=== PATIENT | female | born 1980 | race Caucasian/White ===

== ENCOUNTER 2025-02-03 12:31 | Emergency (ER) | payer OTHER, SELFPAY ==
--- OUTSIDE RECORDS SUMMARY | 2006-10-30 04:41 | XMS_ITS | Continuity of Care Document ---
Author Organization [facility] Address [address] [place] [address] Phone Care Team Providers Care Real Estate Sales Manager Name Role Phone Gilma Sanchez MD Unavailable Unavailable Medications Medication Instructions Dosage Effective Dates (start - stop) Status Comments Depo-Provera 150 mg/mL IM Susp - Active Depo-Provera 150 mg/mL IM Susp - No Longer Active Procedures Procedure Date Medroxypro Klqwvaw-punfno-889 7 Medroxypro Fdpnggc-riuneu-213 7 Injection Medroxypro Kaxdhuu-cakzvi-505 7 Medroxypro Gglhsdf-cdyiwx-117 7 Injection Medroxypro Acetate-contra Medroxypro Acetate-contra Rho D Ig Human 1 Dose Pkg Preven Med Counsl (sep Pr Advance Directives Directive Yes / No Effective Date File Name Resuscitation Not Answered N/A N/A Life Support Not Answered N/A N/A Intubation Not Answered N/A N/A Antibiotics Not Answered N/A N/A IV Fluid Support Not Answered N/A N/A Tube Feed Not Answered N/A N/A Other Directive N/A N/A WARNING:The information contained in this section is historical and is provided for information only and does not constitute a legal document or any assurance that the information is still accurate. Please verify the information with the altman of the legal document before using it for clinical purposes. Encounters Encounter Description Practice Location Reason(s) For Visit Diagnoses Date Provider Providers Copied on Encounter [facility], [address], [place], [place], [address] [place] [address], tel:[phone] [facility] No Information Laura iVctor [address] [place] [address], [address] [place] [address] , . [phone] [facility], [id number] [place] [address], [address] [place] [address], tel:[phone] [facility] No Information Laura Victor [address] [place] [address], [address] [place] [address] , . [phone] [facility], [address], [address] [place] [address], tel:[phone] [facility] No Information Laura Victor [address] [place] [address], [address] [place] [address] , . [phone] [facility], [address], [address] [place] [address], tel:[phone] [facility] No Information Laura Victor [address] [place] [address], [address] [place] [address] , . [phone] [facility], [address] [place] [address], [address] [place] [address], tel:[phone] [facility] No Information Laura Victor [address] [place] [address], [address] [place] [address] , . tel:[phone] Preven Med [facility]sl (sep Pr [facility], [address] [place] [address], [address] [place] [address], tel:[phone] [facility] No Information Laura Dillard. [facility] [place], [place], [id number] , [place]. tel:[phone] Referring Provider: Gilma Braga, [address] [place] [address], [address] . tel:[phone] Family History Family Member Type Diagnosis Age At Onset Mother Problem (finding) Alive and well Father Problem (finding) Alive and well Payers Payer name Insurance type Covered alliance party ID Authoriza tion(s) No Information Social History Type Description Quantity Date Captured Comments Alcohol Use Details Unknown Caffeine Use Details Unknown Tobacco Use Status Smoking Status No Information Sex Female Vital Signs Date / Time: Height Weight BMI Pulse Rate Blood Pressure Temperature Respiratory Rate Body Surface Area Head Circumference Head Circ. Percentile Wt./Zack. Percentile BMI percentile Pulse Ox Inhaled Ox 9:55 AM 120/80 mm[Hg] Chief Complaint And Reason For Visit No Information Reason For Referral Reason For Referral No Information Plan Of Treatment Date Type Action Status Goal TD Vaccine. Due on 07 due History Of Present Illness Encounter Date Complaint History Of Prese nt Illness No Information Functional Status Date Functional Assessmen t No Information Instructions Date Instruction Additional Infor mation No Information Assessments Type Assessment Date No Information Patient Care Teams Name Effective Dates (start - stop) Status Members No Information
--- OUTSIDE RECORDS SUMMARY | 2006-10-30 04:41 | XMS_ITS | Continuity of Care Document ---
Author Organization [facility] Address [address] [place] [address] Phone Care Team Providers Care Carpet Binder Name Role Phone Gilma Sanchez MD Unavailable Unavailable Medications Medication Instructions Dosage Effective Dates (start - stop) Status Comments Depo-Provera 150 mg/mL IM Susp - Active Depo-Provera 150 mg/mL IM Susp - No Longer Active Procedures Procedure Date Medroxypro Dmlcckh-wsisss-371 7 Medroxypro Ivewyqj-pwwznv-060 7 Injection Medroxypro Vefjlsl-xxyphy-175 7 Medroxypro Xnzaugc-acmssv-944 7 Injection Medroxypro Acetate-contra Medroxypro Acetate-contra Rho [...] Diagnoses Date Provider Providers Copied on Encounter [facility], [address], [place], [place], [address] [place] [address], tel:[phone] [facility] No Information Laura Victor [address] [place] [address], [address] [place] [address] , . [phone] [facility], [address] [place] [address], [address] [place] [address], tel:[phone] [facility] No Information Laura Victor [address] [place] [address], [address] [place] [address] , . [phone] [facility], [address], [address] [place] [address], tel:[phone] [facility] No Information Laura Victor [address] [place] [address], [address] [place] [address] , . [phone] [facility], [address], [address] [place] [address], tel:[phone] [facility] No Information Laura Victor [address] [place] [address], [address] [place] [address] , . [phone] [facility], [id number] [place] [address], [address] [place] [address], tel:[phone] [facility] No Information Laura Victor [address] [place] [address], [address] [place] [address] , . tel:[phone] Preven Med Counsl (sep Pr [facility], [address] [place] [address], [address] [place] [address], tel:[phone] [facility] No Information Laura Dillard. [facility] [place], [place], [id number] , [place]. tel:[phone] Referring Provider: Gilma Braga, [address] [place] [address], [address] . tel:[phone] Family History Family Member Type Diagnosis Age At Onset Mother Problem (finding) Alive and well Father Problem (finding) Alive and well Payers Payer name Insurance type Covered constitution party ID Authoriza tion(s) No Information Social [...]
[2025-02-03 12:36] VITALS: BP 145/96; PULSE 105; TEMP 37; O2SAT 97; BMI 23.0
--- OUTSIDE RECORDS SUMMARY | 2025-02-03 12:45 | XMS_ITS | Clinical Summary ---
Author Organization [facility] Address [address] [place] [address] Care Team Providers Care Job Developer Name Role Phone Rabia Sams MD, IBCLC Primary Care Provid er Allergies No known active allergies Medications MedicationSigDispense QuantityRefillsLast FilledStart DateEnd DateStatus Levonorgestrel (Liletta, 52 MG,) 20.1 MCG/DAY intrauterine device Aglmzxc1905/20/2018Active Family History Medical HistoryRelationNameCommentsNo Known ProblemsDaughterDiabetesMaternal GrandfatherNo Known ProblemsSonRelationNameStatusCommentsBrother1 brother Daughter3 daughtersFatherAliveMaternal GrandfatherMotherAliveSon2 sons Social History Tobacco UseTypesPacks/DayYears UsedDateSmoking Tobacco: Every DayCigarettes Smokeless Tobacco: Never Tobacco Cessation:Ready to Q uit: Not Asked; Counseling Given: Not Answered Alcohol UseStandard Drinks/WeekCommentsYes0 (1 standard drink = 0.6 oz pure alcohol)caffeine intake : coffee 1 qdCommentsNoSex and Gender InformationValueDate RecordedSex Assigned at BirthNot on fileLegal SexFemale 05/30/2022 7:38 PM EDTGender KgjwqdtwEhxxov95/15/2023 7:38 PM EDTSexual OrientationNot on file Last Filed Vital Signs Vital SignReadingTime TakenCommentsBlood Mjhqlmhd866/7211/ 10:35 AM EST Pulse--Temperature--Respiratory Rate--Oxygen Saturation--Inhaled Oxygen Concentration--Ckpspt74 kg (141 lb)02/12/2023 10:35 AM ECTNvgmug808 cm (5' 3 ) 05/20/2018 12:00 PM ESTBody Mass Index24.98005/20/2018 12:00 PM EST Plan of Treatment Health MaintenanceDue DateLast DoneCommentsCT Lslyoqmoeckl53/15/1980Colonoscopy 1979Colorectal Cancer Dtiepgnzz03/15/1980FIT-DNA1979FIT1979 FOBT1979 9030Xtfxbbyvhrrgf66/15/1980Pneumococcal Vaccine: Pediatrics (0 to 5 Years) and At-Risk Patients (6 to 64 Years) (1 of 2 - PCV)09/29/1998Mammogram OVID-19 Vaccine ( - 2023- season)2024Influenza Vaccine (#1)2024Pap Smear02/12/ervical Cancer Screening 02/13/2028HPV/Ujmfua94 Procedures Procedure NamePriorityDate/TimeAssociated DiagnosisCommentsBI MAMMOGRAM SCREENING TOMOSYNTHESIS PYUJEBGPLQqffukf15/14/2023 11:36 AM EST Encounter for screening mammogram for malignant neoplasm of breast THINPREP TIS PAP AND HPV MRNA E6/I5Jwtydsx22/28/2023 11:06 AM EST Screening for malignant neoplasm of cervix Encounter for screening for human papillomavirus (HPV) from Last 3 Months or Most Recently Relevant to Health Maintenance Results * Bilateral screening mammogram with tomosynthesis (02/28/2023 11:36 AM EST) Anatomical RegionLateralityModalityBreastBilateralMammographySpecimen (Source) Anatomical Location / LateralityCollection Method / VolumeCollection Time Received Time02/28/2023 5:15 PM EST Impressions 03/01/2023 8:21 AM EST BIRADS 2 - Benign. Follow-up: ?? Routine Screening Mamm ??. Board Certified Radiologists. ??Accredited by the ACR and FDA. MAMMOGRAPHY IS VERY IMPORTANT TO YOUR HEALTH. ??THE [place] [employer] GUIDELINES RECOMMEND THAT WOMEN 40 YEARS OF AGE AND OLDER SHOULD HAVE A MAMMOGRAM EVERY YEAR. A REMINDER LETTER WILL BE SENT AT THE APPROPRIATE TIME. ??THIS FACILITY UTILIZES A REMINDER SYSTEM TO ENSURE ALL PATIENTS RECEIVE REMINDER NOTIFICATIONS AT THE APPROPRIATE TIME BASED ON THE RECOMMENDATIONS OF THIS EXAM. THIS INCLUDES REMINDERS FOR ROUTINE SCREENING MAMMOGRAMS, DIAGNOSTIC MAMMOGRAMSIN WHICH THE PATIENT IS ASKED TO RETURN FOR ADDITIONAL VIEWS, OR OTHER BREAST IMAGING INTERVENTIONSWHEN APPROPRIATE. THE PATIENT WILL BE PLACED IN THE APPROPRIATE REMINDER SYSTEM INCLUDING A REMINDER AT THE APPROPRIATE TIME FOR ANY PENDING ADDITIONAL VIEWS. TRANSCRIBED BY: ? ELECTRONICALLY SIGNED BY: Francisco Bryan MD Narrative 03/01/2023 8:21 AM EST EXAMINATION: BI MAMMOGRAM SCREENING TOMOSYNTHESIS BILATERAL CLINICAL HISTORY: screening COMPARISON: There are no previous mammograms available for comparison. RESULT: Digital mammography and 3D tomosynthesis of bilateral breasts was performed with routine and pinchback views. There are scattered areas of fibroglandular density. There is no suspicious mass, asymmetry, architectural distortion, or calcification. ??Well circumscribed, fairly well expanded subpectoralis breast implants. ?No significant axillary lymphadenopathy. ?? Procedure Note Francisco Bryan MD - 03/01/2023 EXAMINATION: BI MAMMOGRAM SCREENING TOMOSYNTHESIS BILATERAL CLINICAL HISTORY: screening COMPARISON: There are no previous mammograms available for comparison. RESULT: Digital mammography and 3D tomosynthesis of bilateral breasts wasperformed with routine and pinchback views. There are scattered areas of fibroglandular density. There is no suspicious mass, asymmetry, architectural distortion, or calcification. Well circumscribed, fairly well expanded subpectoralis breast implants. No significant axillary lymphadenopathy. IMPRESSION: BIRADS 2 - Benign. Follow-up: Routine Screening Mamm . Board Certified Radiologists. Accredited by the ACR and FDA. MAMMOGRAPHY IS VERY IMPORTANT TO YOUR HEALTH. THE [place] GUIDELINES RECOMMEND THAT WOMEN 40 YEARS OF AGE AND OLDER SHOULD HAVE AMAMMOGRAM EVERY YEAR. A REMINDER LETTER WILL BE SENT AT THE APPROPRIATE TIME. THIS FACILITYUTILIZES A REMINDER SYSTEM TO ENSURE ALL PATIENTS RECEIVE REMINDERNOTIFICATIONS AT THE APPROPRIATE TIME BASED ON THE RECOMMENDATIONS OF THISEXAM. THIS INCLUDES REMINDERS FOR ROUTINE SCREENING MAMMOGRAMS, DIAGNOSTICMAMMOGRAMS IN WHICH THE PATIENT IS ASKED TO RETURN FOR ADDITIONAL VIEWS,OR OTHER BREAST IMAGING INTERVENTIONS WHEN APPROPRIATE. THE PATIENT WILLBE PLACED IN THE APPROPRIATE REMINDER SYSTEM INCLUDING A REMINDER AT THEAPPROPRIATE TIME FOR ANY PENDING ADDITIONAL VIEWS. TRANSCRIBED BY: ELECTRONICALLY SIGNED BY: Francisco Bryan MD Authorizing ProviderResult TypeResult StatusEvibobo Alarconjesseniafortino [facility] BI PROCEDURESFinal Result * THINPREP TIS PAP AND HPV MRNA E6/E7 (02/12/2023 11:06 AM EST)ComponentValueRef RangeTest MethodAnalysis TimePerformed AtPathologist SignatureCLINICAL INFORMATIONQUESTComment:None givenLMPQUESTComment:NONE GIVENPREV. PAPQUEST Comment:NONE GIVENPREV. BXQUESTComment:NONE GIVENSOURCEQUESTComment:Cervix STATEMENT OF ADEQUACYQUESTComment: Satisfactory for evaluation. Endocervical/transformation zone component absent. Partially obscuring inflammation INTERPRETATION/RESULTQUESTComment: Cytology Results: Negative for intraepithelial lesion or malignancy. COMMENTQUESTComment: This Pap test has been evaluated with computer assisted technology. CYTOTECHNOLOGISTQUESTComment: MRS, CT(ASCP) CT screening location: [place] [address]. (ALWAYS MESSAGE)QUESTComment: EXPLANATORY NOTE: The Pap is a screening test for cervical cancer. It is not a diagnostic test and is subject to false negative and false positive results. It is most reliable when a satisfactory sample, regularly obtained, is submitted with relevant clinical findings and history, and when the Pap result is evaluated along with historic and current clinical information. HPV MRNA E6/E7Not DetectedNot DetectedQUESTComment: Methodology: Manager Of Case Management-Mediated Amplification This assay detects E6/E7 viral messenger RNA (mRNA) from 14 high-risk HPV types (16,18,31,33,35,39,45,51,52,56,58,59,66,68). Cervical sources are required for HPV testing. If a vaginal source from a patient who has had a total hysterectomy with removal of cervix was submitted, please contact the testing laboratory for alternative testing options. For additional information, please refer to http://education.Nanoference/faq/TOO796x1 (This link if provided for information/ educational purposes only.) Specimen (Source)Anatomical Location / LateralityCollection Method / Volume Collection TimeReceived TimeVaginal Fluid11/ 11:06 AM EST02/13/2023 4:02 AM EST Narrative Resulting Agency Comment Performing Organization Information ?Site ID: [id number] ?Name: [facility] ?Address: [address] [place] [address], [address] [place] [id number] ?Director: Maurice Mott MD Authorizing ProviderResult TypeResult StatusMona J Nataprawira [facility]OLAB CYTOLOGY ORDERABLESFinal ResultPerforming OrganizationAddressCity/State/ZIP CodePhone Number [facility] from Last 3 Months or Most Recently Relevant to Health Maintenance Insurance Care Teams Team MemberRelationshipSpecialtyStart DateEnd Date Rabia Sams MD, IBCLC [address] [place] [address] PCP - GeneralFamily Fchjeczw57/28/23
--- OUTSIDE RECORDS SUMMARY | 2025-02-03 12:45 | XMS_ITS | Patient Health Record ---
Author Organization [facility] Address [address] [place] [address] Care Team Providers Care Managed Care Liaison Name Role Phone CaraGlynn josé Primary Care Provider Unavailabl e Allergies No Known Allergies Reason For Referral No Information Medications Medication SIG (Take, Route, Frequency, Duration) Notes Start Date End Date Status Albuterol Sulfate HFA 108 (9 0 Base) MCG/ACT 1 puff as needed Inhalation every 4 - 6 hours as needed; Duration: 30 12/10/2022ctive Immunizations Vaccine Route Administration Date Status Comme nts z2023 Fluzone, 6mo & older, Quad PFS (0.5mL Admin) Unknown 12/10/2022 Contraindications Social History Tobacco Use: Social History Observation Description Date Details (start date - stop date) Former Smoker NA - NA Alcohol Misuse/Abuse (Audit C): Question Answer Notes Did you have a drink containing alcohol in the p ast year? Yes How often did you have a drink containing alcohol?Two to four times a month (2 points)How many drinks did you have on a typical occasion?3 or 4 (1 point)How often did you have six or more drinks on one occasion?Less than monthly (1 point)Points:4Interpretation:PositiveTobacco Use Question Answer Notes Are you a Former smoker How long has it been since you last smoked?1-5 years Problems Problem Type SNOMED Code ICD Code Onset Dates Problem Status W/U Status Risk Notes Problem History of urinary t ract infection (7146453516135) H/O urinary tract infection (Z87.440) Activeconfirmed Plan Of Treatment No Information Insurance Providers Payer Name Payer Address Payer Phone Subscriber Number Group Number Insured Name Patient Relationship to Insured Coverage Start Date Coverage End Date [employer] [address] [place] [id number] Natalie Storm Self - patient is the insured Medical (General) History Medical History History ICD Code 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 H/O urinary tract vmzlavwpiK56.440Surgical History Surgery Date(Month/Year) cystogram Hospitalization History Reason Date(Month/Year) childbirth
--- NOTE | 2025-02-03 13:13 | CT_ITS ---
The [address] [address] Patient Name: CHLOE IGNACIO MRN: [id number] date: 1980 Sex: F Assigned Patient Location: ER Current Patient Location: ER Accession/Order Number: [id number] Exam Date: 02/03/2025 13:25 Report Date: 02/03/2025 14:08 At the request of: ASHLEY CARRERO MD Procedure: CT abdomen pelvis w con CT ABDOMEN AND PELVIS WITH INTRAVENOUS CONTRAST: CLINICAL HISTORY: Right lower quadrant pain COMPARISON: None TECHNIQUE: Spiral images were obtained through the abdomen and pelvis following the administration of intravenous contrast. This CT exam was performed using one or more following dose reduction techniques: Automated exposure control, adjustment of the mA and/or kV according to patient size, or use of iterative reconstruction technique. FINDINGS: Lung Bases: [Mild lung scarring.] Organs:Hemangiomas involving the liver. Gallbladder portal vein spleen pancreas and adrenal glands appear unremarkable. No enhancing renal mass or hydronephrosis. Abdominal aorta appears normal in caliber.[ GI: Stomach is grossly unremarkable. Small bowel appears nondilated. Colonic diverticulosis is present with diverticulitis involving the transverse colon. No obstruction is seen. No perforation or abscess.[ Pelvis:[IUD is in place. Follicular changes involving the ovaries. Urinary bladder is grossly unremarkable.] Peritoneum/Retroperitoneum:No free air, free fluid or lymphadenopathy.[ Abd wall/Bones:Abdominal wall demonstrates no acute findings. Osseous structures demonstrate degenerative change.[ CT/CT abdomen pelvis w con IMPRESSION: CT evidence of diverticulitis involving the transverse colon. Impression dictated by: Francisco Pizano Jr., D.O. 02/03/2025 2:08 PM Dictation Location: [place] [address] Electronically authenticated by: [id number] Y Date: 02/03/2025 14:08
--- NOTE | 2025-02-03 13:13 | ED.GENADUL1 ---
HPI HPI - General Adult General Chief complaint: Abdominal Pain Stated complaint: ABDOMINAL PAIN Time Seen by Provider: 02/03/25 13:08 Source: patient Mode of arrival: walk-in History of Present Illness HPI narrative: 44-year-old female presented to the emergency department for abdominal pain. It is just above her umbilicus but also on the right lower quadrant and it started 2 days ago. It is been continuous. She states it is worse if she gets up and walks around. No trauma or fever. She had some diarrhea, no constipation. No previous abdominal surgeries. Related Data Previous Rx's ?Medication ?Instructions ?Recorded ciprofloxacin HCl 500 mg tablet 500 mg PO Q12H #20 tabs 02/03/25 (Cipro) metronidazole 500 mg tablet 500 mg PO TID #30 tabs 02/03/25 ondansetron 4 mg disintegrating 4 mg PO Q6H PRN nausea and 02/03/25 tablet vomiting #20 tabs Allergies Allergy/AdvReac Type Severity Reaction Status Date / Time No Known Drug Allergies Allergy Verified 02/03/25 12:36 Opioid HPI Opioid Management Most Recent Opioid Data: Last Pain Scale 7 Today, 12:36 Review of Systems ROS Narrative A ten point review of systems is negative except as noted above. PFSH PFSH Social History Little interest or pleasure in doing things: not at all Feeling down, depressed, or hopeless: not at all Exam Narrative Exam Narrative: Nurses note and vital signs reviewed General:The patient appears well and in no apparent distress.Patient is resting comfortably on cart. Skin:Warm, dry, no pallor noted.There is no rash noted. Head:Normocephalic, atraumatic Eye: Normal conjunctiva, no drainage Ears, Nose, Mouth, and Throat: oral mucosa is moist. Nares patent. Cardiovascular:Regular Rate and Rhythm Respiratory:Patient is in no distress, no accessory muscle use, lungs are clear to auscultation, no wheezing, rales or rhonchi Back:non-tender GI: Soft and nondistended. Tenderness is present just above the upper hiatus and in the right lower quadrant. No masses Musculoskeletal: The patient has no evidence of calf tenderness, no pitting edema, symmetrical pulses noted bilaterally Neurological:A&O, normal speech Psychiatric:Cooperative Constitutional Vital Signs, click to edit/add: Last Vital Signs Temp 98.6 F 02/03/25 12:36 Pulse 105 H 02/03/25 12:36 Resp 16 02/03/25 12:36 BP 130/83 02/03/25 14:13 Pulse Ox 97 02/03/25 12:36 O2 Del Method Room Air 02/03/25 12:36 Course Vital Signs Vital signs: Vital Signs Temperature 98.6 F 02/03/25 12:36 Pulse Rate 105 H 02/03/25 12:36 Respiratory Rate 16 02/03/25 12:36 Blood Pressure 145/96 H 02/03/25 12:36 Pulse Oximetry 97 02/03/25 12:36 Oxygen Delivery Method Room Air 02/03/25 12:36 Temperature 98.6 F 02/03/25 12:36 Pulse Rate 105 H 02/03/25 12:36 Respiratory Rate 16 02/03/25 12:36 Blood Pressure 130/83 02/03/25 14:13 Pulse Oximetry 97 02/03/25 12:36 Oxygen Delivery Method Room Air 02/03/25 12:36 Medical Decision Making MDM Narrative Medical decision making narrative: CT per radiology shows acute diverticulitis. She does not require admission to hospital and is provided prescriptions for Cipro and Flagyl. The importance of follow-up and the probable need for future colonoscopy was discussed. Treatment diagnosis and follow-up were discussed with the patient. Differential Diagnosis Differential Diagnosis: Constipation, diverticulitis, appendicitis, pancreatitis Lab Data Lab results reviewed: Yes I reviewed the patient's lab results Labs: Lab Results 02/03/25 02/03/25 Range/Units 13:03 13:24 WBC 10.1 (4.0-11.0) 10^3/uL RBC 3.86 L (4.20-5.40) 10^6/uL Hgb 12.6 (12.0-16.0) g/dL Hct 37.3 (36.0-48.0) % MCV 96.6 (81.0-99.0) fL MCH 32.6 (26.7-34.0) pg MCHC 33.8 (29.9-35.2) g/dL RDW 12.4 (11.0-15.0) % Plt Count 167 (150-450) 10^3/uL MPV 9.8 (9.5-13.5) fL Neut % (Auto) 79.2 H (43.0-75.0) % Lymph % (Auto) 14.0 L (20.5-60.0) % [place] % (Auto) 6.2 (1.7-12.0) % Eos % (Auto) 0.1 L (0.9-7.0) % Baso % (Auto) 0.3 (0.2-2.0) % Neut # (Auto) 8.0 H (1.4-6.5) 10^3/uL Lymph # (Auto) 1.4 (1.2-3.8) 10^3/uL [place] # (Auto) 0.6 (0.3-0.8) 10^3/uL Eos # (Auto) 0.0 (0.0-0.7) 10^3/uL Baso # (Auto) 0.0 (0.0-0.1) 10^3/uL Abs Immat Gran (auto) 0.02 (0.00-0.03) 10^3/uL Imm/Tot Granulo (auto) 0.2 (0.0-0.5) % Sodium 137 (136-145) mmol/L Potassium 3.5 (3.5-5.1) mmol/L Chloride 102 (98-107) mmol/L Carbon Dioxide 29.0 (21.0-32.0) mmol/L Anion Gap 9.5 BUN 8.0 (7.0-18.0) mg/dL Creatinine 0.78 (0.55-1.02) mg/dL Est GFR ( Amer) >60 (>=60 mL/min/1.73m^2) Est GFR (Non-Af Amer) >60 (>=60 mL/min/1.73m^2) BUN/Creatinine Ratio 10.3 Glucose 92 (74-106) mg/dL Calcium 9.3 (8.5-10.1) mg/dL Total Bilirubin 1.3 H (0.2-1.0) mg/dL Direct Bilirubin 0.2 (0.0-0.2) mg/dL AST 9 L (15-37) U/L ALT 21 (14-59) U/L Alkaline Phosphatase 49 (46-116) U/L Total Protein 7.6 (6.4-8.2) g/dL Albumin 4.1 (3.4-5.0) g/dL Globulin 3.5 g/dL Albumin/Globulin Ratio 1.2 Amylase 33 (25-115) U/L Lipase 23.0 (16.0-77.0) U/L Serum HCG, Qual Negative (NEGATIVE) Urine Color Lt. yellow (YELLOW) Urine Clarity Clear (CLEAR) Urine pH 6.0 (5.0-9.0) Ur Specific [place] 1.010 (1.005-1.025) Urine Protein Negative (NEG/TRACE) mg/dL Urine Glucose (UA) Negative (NEGATIVE) mg/dL Urine Ketones 15 A (NEGATIVE) mg/dL Urine Occult Blood Moderate A (NEGATIVE) Urine Nitrite Negative (NEGATIVE) Urine Bilirubin Negative (NEGATIVE) Urine Urobilinogen 0.2 (0.2-1.0) EU/dL Ur Leukocyte Esterase Negative (NEGATIVE) Urine RBC 0-2 (0-2) #/HPF Urine WBC 0-2 A (NONE SEEN) #/HPF Ur Squamous Epith Cells Few A (NONE/RARE) #/LPF Urine Crystals None seen (None Seen) #/HPF Urine Bacteria Trace A (NONE SEEN) #/HPF Urine Casts None seen (NONE SEEN) #/LPF Urine Mucus None seen (NONE SEEN) Imaging Data CT scan - abdomen: Radiologist's impression: ITS Impressions Abdomen/Pelvis CT 02/03/25 13:13 IMPRESSION: CT evidence of diverticulitis involving the transverse colon. Impression dictated by: Francisco Pizano Jr., D.O. 02/03/2025 2:08 PM Dictation Location: [place] [id number] Electronically authenticated by: [id number] Y Date: 02/03/2025 14:08 Discharge Plan Discharge Chief Complaint: Abdominal Pain Clinical Impression: Diverticulitis Patient Disposition: Home, Self-Care Time of Disposition Decision: 14:45 Condition: Good Mode of Transportation: Private Vehicle Prescriptions / Home Meds: New metronidazole 500 mg tablet 500 mg PO TID Qty: 30 0RF ciprofloxacin HCl [Cipro] 500 mg tablet 500 mg PO Q12H Qty: 20 0RF ondansetron 4 mg tablet,disintegrating 4 mg PO Q6H PRN (Reason: nausea and vomiting) Qty: 20 0RF Print Language: Korean Instructions: Diverticulitis (ED) Referrals: [facility] [Primary Care Provider, Family Practice] - 1 week
[2025-02-03 13:19] LABS: Hematocrit 37.3 % (36.0-48.0); Hemoglobin 12.6 g/dL (12.0-16.0); Immature Granulocytes Abs Auto 0.02 10^3/uL (0.00-0.03); Immature Granulocytes Pct Auto 0.2 % (0.0-0.5); Lymphocytes Absolute Auto 1.4 10^3/uL (1.2-3.8); Mean Corpuscular HGB Conc 33.8 g/dL (29.9-35.2); Mean Corpuscular Hemoglobin 32.6 pg (26.7-34.0); Mean Corpuscular Volume 96.6 fL (81.0-99.0); Platelet Count 167 10^3/uL (150-450); Red Blood Count 3.86 10^6/uL (4.20-5.40); White Blood Count 10.1 10^3/uL (4.0-11.0)
[2025-02-03 13:31] LABS: Alanine Aminotransferase 21 U/L (14-59); Albumin Globulin Ratio 1.2; Albumin Level 4.1 g/dL (3.4-5.0); Alkaline Phosphatase 49 U/L (46-116); Amylase 33 U/L (25-115); Anion Gap 9.5; Aspartate Amino Transferase 9 U/L (15-37); Blood Urea Nitrogen 8.0 mg/dL (7.0-18.0); Calcium 9.3 mg/dL (8.5-10.1); Carbon Dioxide 29.0 mmol/L (21.0-32.0); Chloride 102 mmol/L (98-107); Estimated GFR (African America >60 (>=60 mL/min/1.73m^2); Estimated GFR (Non-African Ame >60 (>=60 mL/min/1.73m^2); Globulin 3.5 g/dL; Glucose 92 mg/dL (74-106); Lipase 23.0 U/L (16.0-77.0); Potassium 3.5 mmol/L (3.5-5.1); Sodium 137 mmol/L (136-145); Total Protein 7.6 g/dL (6.4-8.2)
[2025-02-03 13:42] LABS: Glucose Urine UA NEGATIVE (NEGATIVE)
[2025-02-03 14:02] LABS: Cast Seen? NONE SEEN #/LPF (NONE SEEN); Crystals Seen? None Seen #/HPF (None Seen)
[2025-02-03 14:13] VITALS: BP 130/83
== END 2025-02-03 14:52 | disposition home or self-care (01) ==
PROVIDERS: Emergency Provider Emergency Medicine; PCP Family Medicine
DX: K57.32 Diverticulitis of large intestine without perforation or abscess without bleeding (principal)
CPT/HCPCS: 36415; 74177; 80048; 80076; 81001; 82150; 83690; 84703; 85025; 99285; Q9967